=== PATIENT | male | born 1995 | race Caucasian/White ===

== ENCOUNTER 2019-05-19 05:10 | Day surgery (SDC) | payer OTHER ==
[~2019-05-19] VITALS: Ht 182.9 cm; Wt 63.4 kg
[2019-05-19] VITALS (7 sets, daily range): BP systolic 103–126; BP diastolic 53–77; PULSE 46–61; TEMP 97.3–97.9
[2019-05-19] MEDS ORDERED: ADVIL200 MG PO (06:01)
--- NOTE | 2019-05-19 06:03 | NUR ---
TO RM AT 0529- CALL LIGHT IN REACH COUSIN AT BEDSIDE.
--- NOTE | 2019-05-19 09:40 | NUR ---
TO RM 7 PER CART FROM PACU. AROUSES TO VERBAL STIMULATION, BUT FALLS BACK TO SLEEP. LEG BAG ON WITH LIGHT YELLOW URINE. NO SIGNS OF PAIN OR DISCOMFORT AT THIS TIME.
--- NOTE | 2019-05-19 09:55 | NUR ---
CONTINUES TO SLEEP QUIETLY COUSIN AT BEDSIDE. RICHARD PATENT TO LEG BAG.
--- NOTE | 2019-05-19 10:10 | NUR ---
AWAKENS EASILY, TOOK A FEW SIPS AND FELL BACK TO SLEEP.
--- NOTE | 2019-05-19 10:30 | NUR ---
RAMOS CATH PATIENT AND PATIENT MORE AWAKE AND EATING CRACKERS.
--- NOTE | 2019-05-19 11:22 | NUR ---
RECEIVED FENTANYL 50MCG PER C/O INCREASED PAIN /.
--- NOTE | 2019-05-19 12:00 | NUR ---
CURRENTLY C/O PAIN 10/09 OFFICE CALLED CONCERNING PAIN MED PRESCIPTION. PER OFFICE NO NEW PRESCRIPTION FOR PAIN MED. IF HE CONTINUES TO C/O PAIN AFTER DISCHARGE TO CALL OFFICE RECEIVED DISCHARGE INSTRUCTIONS OR [facility] CARE AND HOW TO CHANGE FROM LEG BAG TO DOWN DRAIN BAG AT NIGHT. FOLLOW UP ON WEDNESDAY FOR CATHETER REMOVAL.
--- NOTE | 2019-05-19 12:30 | NUR ---
DISCHARGED PER WC BY NURSING STAFF TO PRIVATE CAR IN CARE OF KORTNEY MCALLISTER.
== END 2019-05-19 12:35 | disposition home or self-care (01) ==
LOC: SDCO 05:10
DX: Q64.32 Congenital stricture of urethra (principal); Z88.2 Allergy status to sulfonamides; Z88.1 Allergy status to other antibiotic agents; F17.210 Nicotine dependence, cigarettes, uncomplicated; Z80.3 Family history of malignant neoplasm of breast; Z80.0 Family history of malignant neoplasm of digestive organs
CPT/HCPCS: C1769; J0690; J2250; J2405; J2704; J3010; J7120